=== PATIENT | male | born 1995 | race Caucasian/White ===

== ENCOUNTER 2017-05-11 12:00 | Inpatient (IN) | payer BC ==
--- NOTE | ~2017-05-11 | PN ---
Unit #: [id number] #: [id number] Patient: FARRAH SCHERER [id number] [facility] [address] [place] [address] [id number] I MR#: [id number] NAME: FARRAH SCHERER ROOM: P174 Age: 21 Sex: M Admission Date: 05/12/2017 : 1995 Attending Physician: Lexie Bourgeois M.D. Admitting Physician: Lexie Bourgeois M.D. Primary Care Physician: Primary Care Physician Katherine DAMIAN NOTES DATE OF SERVICE 05/20/2017 DISCUSSION Mr. Scherer is a 21-year-old white male who was seen today. Chart was reviewed and case was discussed with the staff. He was scheduled to be discharged yesterday. However, he apparently has not been feeling good, and his mother called stating that she does not feel safe, and the patient has been calling and telling her on the phone that he was going to go on a rampage at [facility] and kill people. He was telling the staff members that Risperdal was making him have violent thoughts even though he was switched to Risperdal from Haldol. However, discharge planning was canceled due to significant concern about his safety and safety of others, and Risperdal was switched to Zyprexa. He still remains anxious, withdrawn, and rather seclusive to himself with blunted affect, minimal interaction, poor eye contact, and some thought-blocking, and poor frustration tolerance and difficulty expressing himself and has been exhibiting some disorganized thought, speech, and behavior, and we will recommend maintaining him on his current level of precaution and his Zyprexa. We will monitor response and make further adjustments as needed. Dictated by... Vaibhav Bill/luisa TD: 05/20/2017 11:13 JOB #: [id number] JIN DAMIAN NOTES Page 1 of 1 X Lexie Bourgeois MD PROGRESS NOTE
--- NOTE | ~2017-05-11 | PN ---
Unit #: [id number] #: [id number] Patient: FARRAH SCHERER [id number] [facility] [address] [place] [address] [id number] I MR#: [id number] NAME: FARRAH SCHERER. ROOM: P174 Age: 21 Sex: M Admission Date: 05/12/2017 : 1995 Attending Physician: Lexie Bourgeois M.D. Admitting Physician: Lexie Bourgeois M.D. Primary Care Physician: Primary Care Physician Katherine DAMIAN NOTES DATE 05/15/2017 DISCUSSION Mr. Scherer is a 21-year-old, white male who was seen today and chart was reviewed and case was discussed with the staff. He has been anxious, withdrawn though has not shown any agitation, irritability and has been cooperative with treatment recommendations. He has been taking medication and tolerating them fairly well with no reported side effects. MENTAL STATUS EXAM Young white male who was casually dressed with fair personal hygiene, appears to be in no acute distress or discomfort. He was awake and alert on interaction with intact orientation. His mood was anxious with congruent affect. He denies any suicidal or homicidal ideation. His insight and judgement remains slightly impaired. TREATMENT PLAN 1. We will continue him on his current medications and treatment protocol. We will monitor his response to the medication and make further adjustments as needed. 2. We will continue to follow up. Dictated by... Vaibhav Bill/sheree TD: 05/16/2017 02:35 JOB #: [id number] Unit #: [id number] #: [id number] Patient: FARRAH SCHERER JIN PROGRESS NOTES Page 1 of 1 X Lexie Bourgeois MD PROGRESS NOTE
--- NOTE | ~2017-05-11 | PN ---
Unit #: [id number] #: [id number] Patient: FARRAH SCHERER [id number] [facility] [address] [place] [address] [id number] I MR#: [id number] NAME: FARRAH SCHERER. ROOM: P174 Age: 21 Sex: M Admission Date: 05/12/2017 : 1995 Attending Physician: Lexie Bourgeois M.D. Admitting Physician: Lexie Bourgeois M.D. Primary Care Physician: Primary Care Physician Katherine ABDI PROGRESS NOTES DATE 05/22/2017 DISCUSSION Mr. Scherer is a 21-year-old white male with mood disorder who was seen today and chart was reviewed and case was discussed with the staff. He has been rather anxious, withdrawn and seclusive to himself. Meanwhile, he has been cooperative with treatment recommendations and has been taking medications and tolerating them fairly well with no reported side effects. MENTAL STATUS EXAMINATION Young white male who was casually dressed with fair personal hygiene and appears to be in no acute distress or discomfort. He was awake and alert on interaction with intact orientation. His mood was anxious with congruent affect. He denies any suicidal or homicidal ideations. His insight and judgement remains slightly impaired. TREATMENT PLAN 1. Will continue on his current medications and treatment protocol. Will monitor his response to the medications and make further adjustments as needed. 2. Will continue to follow up. Dictated by... Vaibhav Bill/jensh TD: 05/22/2017 16:26 JOB #: [id number] Unit #: [id number] #: [id number] Patient: FARRAH SCHERER JIN PROGRESS NOTES Page 1 of 1 X Lexie Bourgeois MD PROGRESS NOTE
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
--- NOTE | ~2017-05-11 | DS ---
Unit #: [id number] #: [id number] Patient: FARRAH SCHERER [id number] [facility] [address] [place] [address] [id number] I MR#: [id number] NAME: FARRAH SCHERER. ROOM: P179 Age: 21 Sex: M Admission Date: 05/12/2017 : 1995 Discharge Date: 05/24/2017 Attending Physician: Lexie Bourgeois M.D. DISCHARGE SUMMARY IDENTIFYING DATA Mr. Scherer is a 21-year-old single white male, who is a resident of [place], [place], and was transferred to us from [facility]. DISCHARGE DIAGNOSES Psychiatric: Methamphetamine dependence, moderate; methamphetamine-induced psychosis. Medical: None. Stressors: Moderate psychosocial stressors. HISTORY OF PRESENT ILLNESS Mr. Scherer is a 21-year-old white male, who was initially assessed yesterday and was transferred to [facility] for medical clearance due to elevated vitals and the patient was discharged from the emergency room and got a talk with a bus mechanic, and returned to [facility]iam Pabon for reassessment stating that he continues to have psychotic symptoms and has been having trouble sleeping because of voices in his head and needing a safe place to sleep and that he was in a facility before and had psychiatric treatment and had bad experience with the medication because he went back to school, people were saying "my personality was different and my mood worsened and I became violent and stayed away from people." The patient reports that he came here because he lost his job and got evicted from the house that he was staying in and he started hanging out with friends who stated that they were going to help him to get back on his feet and the patient reports that the people were harassing him and trying to keep him away from teasing him sexually. They try to make him think that he was hearing voices and every time he would leave and sleep in the park, they would find him and bring him back to their apartment, have sex in front of him and the patient reports that he trusted this group of people and they were smoking methamphetamine and shooting up heroin in front of children and printing up counterfeit money $50 bills. $20 bills, and $10 bills and they would give him money and "sent me to the store with the counterfeit money." The patient reports that he worked at [employer] and people would come in and talk about him like he was not there. The patient reports that he has been smoking a lot of methamphetamine for the past 3 days and it has gotten worse and he has not been sleeping and was seen to be acutely psychotic with significant paranoia and delusional behavior, and was seen to be rather a danger to self and has a history of cutting in the past, though he denied any current suicidal ideations, however, recommendation for inpatient level of care for safety and stabilization was made and the patient was transferred to us. Unit #: [id number] #: [id number] Patient: FARRAH SCHERER PAST PSYCHIATRIC HISTORY The patient has had a history of inpatient psychiatric hospitalization at [facility] in 2012, though currently is not active in any treatment program, is not seeing a psychiatrist, and not taking any psychotropic medications. PAST MEDICAL HISTORY No acute or chronic medical illnesses. HOSPITAL COURSE The patient was admitted to the adult psychiatric unit at [facility] and was oriented to the hospital environment. Routine p.r.n. medications were initiated, and he was started on his home medications. Initially, Haldol was started due to acute psychosis; however, he was having some EPS related side effects and Haldol was then switched to Risperdal and he was complaining of having some violent thoughts from that medication and as such, it was discontinued. Zyprexa then was initiated with good tolerability and therapeutic response. The patient was denying any thoughts of wanting to hurt himself or anyone else, and as such, it was decided that he will be maintained on his current medication and will be discharged home. We will continue with treatment on an outpatient basis. DISCHARGE MEDICATION Zyprexa 10 mg at bedtime for psychosis. DISCHARGE CONDITION Stable. PROGNOSIS Fair. Dictated by... Vaibhav Bill/katrin TD: 05/24/2017 13:49 JOB #: [id number] DISCHARGE SUMMARY Page 1 of 1 X Lexie Bourgeois MD X DISCHARGE SUMMARY
--- NOTE | ~2017-05-11 | PA ---
Unit #: [id number] #: [id number] Patient: FARRAH SCHERER [id number] [facility] [address] [place] [address] [id number] MR#: [id number] NAME: FARRAH SCHERER ROOM: P174 Age: 21 Sex: M Admission Date: 05/12/2017 : 1995 Date of Assessment: 05/12/2017 Attending Physician: Lexie Bourgeois M.D. Admitting Physician: Lexie Bourgeois M.D. Primary Care Physician: Primary Care Physician No PSYCHIATRIC ASSESSMENT DATE OF SERVICE 05/12/2017. IDENTIFYING DATA Mr. Scherer is a 21-year-old, single, white male, who is a resident of [place], [place], and was self-referred to the hospital on a voluntary basis after he was transferred back to us from [facility]. CHIEF COMPLAINT "I'm having suicidal thoughts." HISTORY OF PRESENT ILLNESS Mr. Scherer is a 21-year-old white male, who was initially assessed yesterday and was transferred to [facility] for medical clearance due to elevated vitals and the patient was discharged from the emergency room and got a talk with a business support specialist, and returned to [facility] for reassessment stating that he continues to have psychotic symptoms and has been having trouble sleeping because of voices in his head and needing a safe place to sleep and that he was in a facility before and had psychiatric treatment and had bad experience with the medication because he went back to school, people were saying "my personality was different and my mood worsened and I became violent and stayed away from people." The patient reports that he came here because he lost his job and got evicted from the house that he was staying in and he started hanging out with friends who stated that they were going to help him to get back on his feet and the patient reports that the people were harassing him and trying to keep him away from teasing him sexually. They try to make him think that he was hearing voices and every time he would leave and sleep in the park, they would find him and bring him back to their apartment, have sex in front of him and the patient reports that he trusted this group of people and they were smoking methamphetamine and shooting up heroin in front of children and printing up counterfeit money $50 bills. $20 bills, and $10 bills and they would give him money and "sent me to the store with the counterfeit money." The patient reports that he worked at [employer] and people would come in and talk about him like he was not there. The patient reports that he has been smoking a lot of methamphetamine for the past 3 days and it has gotten worse and he has not been sleeping and was seen to be acutely psychotic with significant paranoia and delusional behavior, and was seen to be rather a danger to self and has a history of cutting in the past, though he denied any current suicidal ideations, however, recommendation for inpatient level of care for safety and stabilization was made and the patient was transferred Unit #: [id number] #: [id number] Patient: FARRAH SCHERER to us. SUBSTANCE ABUSE HISTORY The patient reports history of cannabis and methamphetamine abuse and currently methamphetamine has been his drug of choice as he reports that he has "lot of methamphetamine." PAST PSYCHIATRIC HISTORY The patient has had a history of inpatient psychiatric hospitalization at [facility] in 2013, though currently is not active in any treatment program, is not seeing a psychiatrist, and not taking any psychotropic medications. PAST MEDICAL HISTORY No acute or chronic medical illnesses. ALLERGIES No known medication allergies. CURRENT MEDICATIONS None. PERSONAL AND SOCIAL HISTORY A 21-year-old white male, who reports that he is single, unemployed, and has been living at home with his mother and father and has fairly decent social support system. MENTAL STATUS EXAMINATION Young white male, who was casually dressed with fair personal hygiene, appears to be in no acute distress or discomfort. He was awake and alert on interaction with intact orientation to time, place, and person. His mood was anxious and depressed with a congruent affect. His speech was slow and restricted in content. His thought processes were disorganized with some looseness of associations, flight of ideas, paranoid ideations and delusional behavior. He denies any suicidal or homicidal ideations. His insight and judgment remain significantly impaired. DIAGNOSTIC IMPRESSION Psychiatric: Methamphetamine dependence, moderate; methamphetamine-induced psychosis. Medical: None. Stressors: Moderate psychosocial stressors. TREATMENT PLAN 1. The patient has presented with a history of substance abuse and mood disorder, and has been decompensating and will need inpatient hospitalization for detoxification, safety, and stabilization. We will start him back on his home medications. We will adjust the medications and monitor response. 2. Supportive therapy was provided to the patient. 3. Safe, structured, and nourishing environment will be provided. ESTIMATED LENGTH OF STAY 4 to 5 days. ABILITY TO HELP SELF Unit #: [id number] #: [id number] Patient: FARRAH SCHERER Limited. WILLINGNESS TO HELP SELF The patient appears to be willing to help self. STRENGTHS 1. Communicative. 2. Cooperative. PROBLEMS 1. Chronic dysphoric symptoms. 2. Chronic chemical dependency. 3. Poor social support system. DISCHARGE CRITERIA This will be contingent upon the patient's ability to go through detox without having any significant withdrawal symptoms as well as his ability to stay safe to himself and others, particularly after discharge from the hospital. Dictated by... Vaibhav Bill/katrin TD: 05/13/2017 06:45 JOB #: [id number] PSYCHIATRIC ASSESSMENT Page 1 of 1 X Lexie Bourgeois MD X PSYCHIATRIC ASSESSMENT
--- NOTE | ~2017-05-11 | PN ---
Unit #: [id number] #: [id number] Patient: FARRAH SCHERER [id number] [facility] [address] [place] [address] [id number] MR#: [id number] NAME: FARRAH SCHERER. ROOM: P174 Age: 21 Sex: M Admission Date: 05/12/2017 : 1995 Attending Physician: Lexie Bourgeois M.D. Admitting Physician: Lexie Bourgeois M.D. Primary Care Physician: Primary Care Physician Katherine ABDI PROGRESS NOTES DATE May 17, 2017 DISCUSSION Mr. Scherer is a 21-year-old white male, who was seen today and chart was reviewed and the case was discussed with the staff. He appears to be doing somewhat better and was started on Risperdal yesterday and has not shown any intolerability and he remains anxious, withdrawn, unkept, and disheveled, and seclusive to himself. MENTAL STATUS EXAMINATION Young white male, who was casually dressed with marginal personal hygiene and appears to be in no acute distress or discomfort. He was awake and alert with impaired attention and concentration. His mood is anxious with a congruent affect. He denies any suicidal or homicidal ideations. His insight and judgment remain significantly impaired. TREATMENT PLAN 1. We will continue him on his current medications and treatment protocol, and will monitor his response to the medications, and make further adjustments as needed. 2. We will continue to followup. Dictated by... Vaibhav Bill/ct TD: 05/17/2017 10:21 JOB #: [id number] Unit #: [id number] #: [id number] Patient: FARRAH SCHERER PROGRESS NOTES Page 1 of 1 X Lexie Bourgeois MD PROGRESS NOTE
--- NOTE | ~2017-05-11 | PN ---
Unit #: [id number] #: [id number] Patient: FARRAH SCHERER [id number] [facility] [address] [place] [address] [id number] MR#: [id number] NAME: FARRAH SCHERER. ROOM: P174 Age: 21 Sex: M Admission Date: 05/12/2017 : 1995 Attending Physician: Lexie Bourgeois M.D. Admitting Physician: Lexie Bourgeois M.D. Primary Care Physician: Primary Care Physician Katherine ABDI PROGRESS NOTES DATE 05/16/2017 DISCUSSION Mr. Scherer is a 21-year-old, white male who was seen today and chart was reviewed and case was discussed with the staff. He has been anxious, withdrawn, unkempt, disheveled in some distress and discomfort though has started coming out for meals. Meanwhile, he has been taking medications and tolerating them fairly well with no reported side effects. MENTAL STATUS EXAM Young white male who was casually dressed with fair personal hygiene, appears to be in no acute distress or discomfort. He was awake and alert on interaction with intact orientation. His mood was anxious with congruent affect. He denies any suicidal or homicidal ideation. His insight and judgement remains slightly impaired. TREATMENT PLAN 1. We will continue him on his current treatment protocol. We will monitor his response to the medication and make further adjustments as needed. 2. We will continue to follow up. Dictated by... Vaibhav Bill/sheree TD: 05/16/2017 22:19 JOB #: [id number] Unit #: [id number] #: [id number] Patient: FARRAH SCHERER JIN PROGRESS NOTES Page 1 of 1 X Lexie Bourgeois MD PROGRESS NOTE
--- NOTE | ~2017-05-11 | PN ---
Unit #: [id number] #: [id number] Patient: FARRAH SCHERER [id number] [facility] [address] [place] [address] [id number] MR#: [id number] NAME: FARRAH SCHERER. ROOM: P174 Age: 21 Sex: M Admission Date: 05/12/2017 : 1995 Attending Physician: Lexie Bourgeois M.D. Admitting Physician: Lexie Bourgeois M.D. Primary Care Physician: Primary Care Physician Katherine DAMIAN NOTES DATE OF SERVICE 05/20/2017 DISCUSSION Mr. Scherer is a 21-year-old white male who was seen today. Chart was reviewed and case was discussed with the staff. He has been doing fairly well and reports the Zyprexa has been helping him better as Risperdal detox is making him have violent thoughts, but he is much calmer on Zyprexa and denies any thoughts of wanting to hurt anyone. He has been taking the medications and tolerating them fairly well with no reported side effects. MENTAL STATUS EXAMINATION Young white male who is casually dressed with fair personal hygiene, appears to be in no acute distress or discomfort. He was awake and alert with intact orientation. His mood is anxious with congruent affect. He denies any suicidal or homicidal ideations. His insight and judgment remain slightly impaired. TREATMENT PLAN 1. We will continue him on his current medications and treatment protocol. We will monitor his response to the medications and make further adjustments as needed. 2. We will continue to follow up. Dictated by... Vaibhav Bill/luisa TD: 05/21/2017 11:06 JOB #: [id number] Unit #: [id number] #: [id number] Patient: FARRAH SCHERER JIN PROGRESS NOTES Page 1 of 1 X Lexie Bourgeois MD PROGRESS NOTE
--- NOTE | ~2017-05-11 | A ---
[facility] Nutrition Therapy DATE: 05/14/17 Patient: FARRAH SCHERER Physician: FIDEL Address: NO PERMANENT ADDRESS Room/Bed: [address], Zip: [place] [address] Admit Date: 05/12/17 Date of : 95 Height: 5 7 Weight: [phone] NUTRITIONAL ASSESSMENT: REASON: UNINTENTIONAL WEIGHT LOSS PATIENT ADMITTED FOR DEPRESSION AND SI PMH: NONE Anthropometrics: HT: 67", WT: 128#, BMI: 20, %IBW: 86 Labs: 05/13/17- NUTRITIONAL LABS WNL Meds: LUCAS PAN Assessment: PATIENT IS A 21 Y/O MALE ADMITTED FOR SI AND DEPRESSION. PATIENT IS CURRENTLY UNEMPLOYED, LIVES IN AN APARTMENT, SMOKES 1 PPD, HAS DAILY METH USE, AND FREQUENT MARIJUANA USE. PATIENT HAS A HX OF INPATIENT PSYCH THERAPY AND WAS NOT TAKING ANY MEDICATIONS. PER NEEDS ASSESSMENT PATIENT STATED A POOR APPETITE WITH A 10# WEIGHT LOSS X LAST SEVERAL MONTHS AND HE HAD NOT BEEN SLEEPING. NURSING REPORTS FAIR PO INTAKES. PATIENT'S BMI IS WITHIN A HEALTHY RANGE AND HE IS 86% OF HIS IBW. THERE ARE NO SKIN OR GI ISSUES NOTED ATT. CURRENT PSYCH MEDS MAY CAUSE WEIGHT AND APPETITE FLUCTUATIONS. PATIENT IS ON A REGULAR DIET. Dx: UNINTENTIONAL WEIGHT LOSS R/T DEPRESSION, DRUG USE AEB SELF-REPORTED WEIGHT LOSS AND DECREASED APPETITE, NUTRITIONAL RISK POINT Intervention: REGULAR DIET, MEDS PER MD, PSYCH Monitoring, Evaluation and Goals: 1. ADEQUATE PO INTAKES >50% OF MEALS 2. PREVENT, CORRECT MICRO/MACRO NUTRIENT DEFICIENCIES 3. WEIGHT; MAINTAIN CURRENT WEIGHT, PREVENT FURTHER WEIGHT LOSS MONITOR; WEIGHTS, LABS, PO/FLUID INTAKES Recommendations: 1. CONTINUE REGULAR DIET TOLERATED. OFFER SNACKS BETWEEN MEALS. IF PATIENT HAS C/O HUNGER PLEASE SEND ORDER FOR LARGE PORTION ENTREES AND RD WILL APPROVE 2. ENCOURAGE ADEQUATE PO AND FLUID INTAKES 3. OBTAIN WEIGHTS ROUTINELY (EVERY 3-4 DAYS) 4. IF PO INTAKES FALL BELOW 50% OF MEALS PLEASE ORDER ENSURE BID TO PROMOTE ADEQUATE KCAL [facility] Nutrition Therapy DATE: 05/14/17 Patient: FARRAH SCHERER Physician: FIDEL Address: NO PERMANENT ADDRESS Room/Bed: [address], Zip: [place] [address] Admit Date: 05/12/17 Date of : 95 Height: 5 7 Weight: [address] PROTE[address] IN[address] TO F/U PER PROTOCOL AND PRN R/T PATIENT MILDLY COMPROMISED Respectfully, KELSEY LEMUS, RD, LD Food and Nutritional Services [facility] [place] [facility] cc: client file
--- NOTE | ~2017-05-11 | DS ---
Unit #: [id number] #: [id number] Patient: FARRAH SCHERER [id number] [facility] [address] [place] [address] [id number] I MR#: [id number] NAME: FARRAH SCHERER ROOM: P174 Age: 21 Sex: M Admission Date: 05/12/2017 : 1995 Discharge Date: 05/19/2017 Attending Physician: Lexie Bourgeois M.D. Primary Care Physician: Primary Care Physician No DISCHARGE SUMMARY REASON FOR ADMISSION Mr. Scherer is a 21-year-old single white male who is a resident of [place], [place] and was self-referred to the hospital on voluntary basis and [facility] with a chief complaint of "I'm having suicidal thoughts." HISTORY OF PRESENT ILLNESS Please see initial psychiatric evaluation. PAST PSYCHIATRIC HISTORY Please see initial psychiatric evaluation. PAST MEDICAL HISTORY Please see initial psychiatric evaluation. HOSPITAL COURSE The patient was [facility] and was oriented to the hospital. Routine p.r.n. medications were initiated and he was started back on his home medications and was seen to be exhibiting some acute psychosis as part of that, Haldol was initially started. However, he was having some EPS related side effects and I gave him some Cogentin but he was still having those side effects and as such Haldol was then discontinued and Risperdal was initiated and that helped clear his psychosis which appeared to be part of his methamphetamine dependence. He does not seem to be a danger to self or anyone else and as such it was decided that he will be discharged and will continue treatment on outpatient basis. DISCHARGE DIAGNOSES PSYCHIATRIC: Methamphetamine dependence, moderate with amphetamine induced psychosis. MEDICAL: None. STRESSORS: Mild psychosocial stressors. DISCHARGE MEDICATIONS Risperdal 0.5 mg b.i.d. for psychosis. CONDITION AT DISCHARGE Stable. Unit #: [id number] #: [id number] Patient: FARRAH SCHERER PROGNOSIS Fair. Dictated by... Lexie Bourgeois M.D. IAA/jensh TD: 05/19/2017 19:58 JOB #: [id number] DISCHARGE SUMMARY Page 1 of 1 X Lexie Bourgeois MD DISCHARGE SUMMARY
--- NOTE | ~2017-05-11 | PN ---
Unit #: [id number] #: [id number] Patient: FARRAH SCHERER [id number] [facility] [address] [place] [address] [id number] I MR#: [id number] NAME: FARRAH SCHERER. ROOM: 74 Age: 21 Sex: M Admission Date: 05/12/2017 : 1995 Attending Physician: Lexie Bourgeois M.D. Admitting Physician: Lexie Bourgeois M.D. Primary Care Physician: Primary Care Physician Katherine DAMIAN NOTES DATE May 18, 2017 DISCUSSION Mr. Scherer is a 21-year-old white male, who was seen today and chart was reviewed and the case was discussed with the staff. He has been anxious, withdrawn, but has not shown any agitation, irritability, or behavioral problems and has been cooperative with the treatment recommendations and has had persistent anxiety. He has been taking the medications and tolerating them fairly well. MENTAL STATUS EXAMINATION Young white male, who was casually dressed with fair personal hygiene and appears to be in no acute distress or discomfort. He was awake and alert on interaction with intact orientation. His mood is anxious with a congruent affect. He denies any suicidal or homicidal ideations, and also denies any auditory or visual hallucinations. His insight and judgment remain slightly impaired. TREATMENT PLAN 1. We will continue him on his current medications and treatment protocol, and will monitor his response to the medications, and make further adjustments as needed. 2. We will continue to followup. Dictated by... Vaibhav Bill/ct TD: 05/18/2017 12:27 JOB #: [id number] Unit #: [id number] #: [id number] Patient: FARRAH SCHERER JIN PROGRESS NOTES Page 1 of 1 X Lexie Bourgeois MD PROGRESS NOTE
--- NOTE | ~2017-05-11 | PN ---
Unit #: [id number] #: [id number] Patient: FARRAH SCHERER [id number] [facility] [address] [place] [address] [id number] I MR#: [id number] NAME: FARRAH SCHERER. ROOM: P179 Age: 21 Sex: M Admission Date: 05/12/2017 : 1995 Attending Physician: Lexie Bourgeois M.D. Admitting Physician: Lexie Bourgeois M.D. Primary Care Physician: Primary Care Physician Katherine DAMIAN NOTES DATE May 23, 2017 DISCUSSION Mr. Scherer is a 21-year-old white male, with mood disorder, who was seen today and chart was reviewed and the case was discussed with the staff. He has been calm and cooperative and seclusive to himself, and has not shown any agitation or aggression. Meanwhile, he has been taking the medications and tolerating them fairly well with no reported side effects. MENTAL STATUS EXAMINATION Young white male, who was casually dressed with fair personal hygiene and appears to be in no acute distress or discomfort. He was awake and alert on interaction with intact orientation. His mood is anxious with a congruent affect. He denies any suicidal or homicidal ideations. His insight and judgment remain slightly impaired. TREATMENT PLAN 1. We will continue him on his current medications and treatment protocol, and will monitor his response to the medications, and make further adjustments as needed. 2. We will continue to followup. Dictated by... Vaibhav Bill/ct TD: 05/24/2017 06:44 JOB #: [id number] Unit #: [id number] #: [id number] Patient: FARRAH SCHERER JIN PROGRESS NOTES Page 1 of 1 X Lexie Bourgeois MD PROGRESS NOTE
--- NOTE | ~2017-05-11 | PN ---
Unit #: [id number] #: [id number] Patient: FARRAH SCHERER [id number] [facility] [address] [place] [address] [id number] I MR#: [id number] NAME: FARRAH SCHERER ROOM: P174 Age: 21 Sex: M Admission Date: 05/12/2017 : 1995 Attending Physician: Lexie Bourgeois M.D. Admitting Physician: Vaibhav Bill NOTES DATE OF SERVICE: 05/13/2017 SUBJECTIVE Mr. Scherer is a 21-year-old white male who was seen today and chart was reviewed and case was discussed with the staff. He was seen to be anxious, withdrawn, restless and in some distress and discomfort. Meanwhile, he has been taking medications and tolerating them fairly well with no reported side effects. MENTAL STATUS EXAMINATION Young white male, who is casually dressed with fair personal hygiene, appears to be in slight distress and discomfort. He was alert with impaired attention and concentration. His mood was anxious with a congruent affect. He denies any suicidal or homicidal ideation. His insight and judgment remain slightly impaired. TREATMENT PLAN 1. We will continue on his current medications and treatment protocol. We will monitor his response to medications and make further adjustments as needed. 2. We will continue to follow up. Dictated by... Vaibhav Bill/katrin TD: 05/14/2017 00:53 JOB #: [id number] JIN PROGRESS NOTES Page 1 of 1 X Lexie Bourgeois MD PROGRESS NOTE
--- NOTE | ~2017-05-11 | PN ---
Unit #: [id number] #: [id number] Patient: FARRAH SCHERER [id number] [facility] [address] [place] [address] [id number] I MR#: [id number] NAME: FARRAH SCHERER. ROOM: P174 Age: 21 Sex: M Admission Date: 05/12/2017 : 1995 Attending Physician: Lexie Bourgeois M.D. Admitting Physician: Lexie Bourgeois M.D. Primary Care Physician: Primary Care Physician Katherine ABDI PROGRESS NOTES DATE 05/14/2017 DISCUSSION Mr. Scherer is a 21-year-old white male who was seen today and chart was reviewed and case was discussed with the staff. He has been anxious, withdrawn and apparently had some EPS ____ Haldol yesterday and Cogentin was given with full evaluation of side effects. Meanwhile, though still has been anxious, withdrawn and persistent psychosis though has not shown any agitation or aggression. MENTAL STATUS EXAMINATION Young white male who was casually dressed with fair personal hygiene and appears to be in no acute distress or discomfort. He was awake and alert on interaction with intact orientation. His mood was anxious with congruent affect. He denies any suicidal or homicidal ideation. His thought processes were disorganized with some looseness of association and paranoid ideations. His insight and judgement remains significantly impaired. TREATMENT PLAN 1. Will continue on his current medications and treatment protocol. Will monitor his response to the medications and make further adjustments as needed. 2. Will continue to follow up. Dictated by... Vaibhav Bill/jannie TD: 05/14/2017 16:06 JOB #: [id number] Unit #: [id number] #: [id number] Patient: FARRAH SCHERER JIN PROGRESS NOTES Page 1 of 1 X Lexie Bourgeois MD PROGRESS NOTE
[2017-05-13 09:39] LABS: BASOPHIL% 0.7 % (0-2.5); EOSINOPHIL# 0.2 X10e3 (0-0.7); EOSINOPHIL% 3.6 % (0.0-7.0); HEMATOCRIT 44.1 % (38.0-50.0); HEMOGLOBIN 14.9 gm/dL (13.0-16.0); LYMPHOCYTE# 1.2 X10e3 (1.0-3.5); LYMPHOCYTE% 22.5 % (17.0-45.0); MEAN CELL VOLUME 89.1 FL (83-96); MEAN CORPUSCULAR HEMOGLOBIN 30.1 PG (28-34); MEAN CORPUSCULAR HGB CONC 33.8 g/dL (30-36); MEAN PLATELET VOLUME 9.8 FL (6.5-11.5); MONOCYTE# 0.6 X10e3 (0-1.0); MONOCYTE% 10.8 % (3.0-12.0); NEUTROPHIL# 3.4 X10e3 (1.5-7.1); NEUTROPHIL% 62.4 % (40-75); PLATELET COUNT 138 X10e3 (140-420); RED BLOOD COUNT 4.95 X10e (3.90-5.60); RED CELL DISTRIBUTION WIDTH 13.3 % (11.0-15.5); WHITE BLOOD COUNT 5.4 X10e3 (4.0-10.5)
[2017-05-13 09:58] LABS: DIFF IND NO
[2017-05-13 10:15] LABS: ALBUMIN SERUM 4.1 g/dL (3.5-5.0); BILIRUBIN,TOTAL 1.1 mg/dL (0.2-2.0); BUN/CREATININE RATIO 12.22; CALCIUM SERUM 9.4 mg/dL (8.4-10.2); CREATININE SERUM 0.9 mg/dL (0.6-1.4); GLOM FILT RATE Estimated 121.7 mL/min (>60); POTASSIUM 4.5 mmol/L (3.5-5.1); PROTEIN TOTAL SERUM 6.3 g/dL (6.0-8.3)
[2017-05-13 12:32] LABS: URINE APPEARANCE CLEAR; URINE BILIRUBIN NEG (NEG); URINE BLOOD NEG (NEG); URINE COLOR DK YELLOW; URINE GLUCOSE NEG (NEG); URINE KETONE NEG (NEG); URINE LEUKOCYTE ESTERASE NEG (NEG); URINE NITRATE NEG (NEG); URINE PROTEIN NEG (NEG); URINE SPECIFIC GRAVITY 1.023 (1.003-1.035)
[2017-05-13 12:46] LABS: AMPHETAMINE POS (NEG); BARBITURATES NEG (NEG); BENZODIAZEPINES NEG (NEG); COCAINE NEG (NEG); MARIJUANA POS (NEG); OPIATES NEG (NEG); TRICYCLIC ANTIDEPRESSANTS NEG (NEG); U METHADONE NEG (NEG)
== END 2017-05-24 10:24 | disposition home or self-care (01) | DRG 897 ==
LOC: UNDOADMIN 15:46 → P1E 15:46
PROVIDERS: Psychiatry & Neurology Psychiatry
PROC: HZ2ZZZZ Detoxification Services for Substance Abuse Treatment (ICD-10-PCS; principal; 2017-05-12)
DX: F15.259 Other stimulant dependence with stimulant-induced psychotic disorder, unspecified (principal); F17.210 Nicotine dependence, cigarettes, uncomplicated
CPT/HCPCS: 80053; 80307; 81003; 85025; J0515

== ENCOUNTER 2017-06-01 17:24 | Inpatient (IN) | payer BC, MEDICAID ==
[~2017-06-01] VITALS: Ht 170.2 cm; Wt 53.5 kg
--- NOTE | ~2017-06-01 | PN ---
Unit #: [id number] #: [id number] Patient: FARRAH SCHERER [id number] [facility] [address] [place] [address] [id number] I MR#: [id number] NAME: FARRAH SCHERER [facility] Age: 21 Sex: M Admission Date: 06/01/2017 : 1995 Attending Physician: Lexie Bourgeois M.D. Admitting Physician: Lexie Bourgeois M.D. Primary Care Physician: Primary Care Physician Katherine ABDI PROGRESS NOTES DATE June 10, 2017 DISCUSSION Mr. Scherer is a 21-year-old white male, who was seen today and chart was reviewed and the case was discussed with the staff. He has been anxious, withdrawn, and seclusive to himself. Meanwhile, he has been cooperative with the treatment recommendations and he has been taking the medications and tolerating them fairly well with no reported side effects. MENTAL STATUS EXAMINATION Young white male, who was casually dressed with fair personal hygiene and appears to be in no acute distress or discomfort. He was awake and alert on interaction with intact orientation. His mood is anxious with a congruent affect. Speech is slow and goal-directed. He denies any suicidal ideations, and also denies any auditory or visual hallucinations. His insight and judgment remain slightly impaired. TREATMENT PLAN 1. We will continue him on his current medications and treatment protocol, and will monitor his response to the medications, and make further adjustments as needed. 2. We will continue to followup. Dictated by... Vaibhav Bill/ct TD: 06/11/2017 07:27 JOB #: [id number] Unit #: [id number] #: [id number] Patient: FARRAH SCHERER JIN PROGRESS NOTES Page 1 of 1 X Lexie Bourgeois MD PROGRESS NOTE
--- NOTE | ~2017-06-01 | PN ---
Unit #: [id number] #: [id number] Patient: FARRAH SCHERER [id number] [facility] [address] [place] [address] [id number] I MR#: [id number] NAME: FARRAH SCHERER ROOM: [facility] Age: 21 Sex: M Admission Date: 06/01/2017 : 1995 Attending Physician: Lexie Bourgeois M.D. Admitting Physician: Lexie Bourgeois M.D. Primary Care Physician: Primary Care Physician Katherine DAMIAN NOTES DATE 06/05/2017 DISCUSSION Mr. Scherer is a 21-year-old white male with mood disorder and psychosis who was seen today and chart was reviewed and case was discussed with the staff. He was seen to be anxious, withdrawn and seclusive to himself with bizarre behavior and blunted affect, minimal interaction, paranoid ideations and thought blocking. Meanwhile, he has been taking medications and tolerating them fairly well with no reported side effects. MENTAL STATUS EXAMINATION Young white male who was casually dressed with fair personal hygiene and appears to be in no acute distress or discomfort. He was awake and alert on interaction with intact orientation. His mood was anxious and depressed with blunted affect. His speech is slow and restricted in content. His thought processes were disorganized with some looseness of associations and paranoid ideations. His insight and judgement remains significantly impaired. TREATMENT PLAN 1. Will continue on his current medications and treatment protocol. Will monitor his response to the medications and make further adjustments as needed. 2. Will continue to follow up. Dictated by... Vaibhav Bill/jannie TD: 06/05/2017 20:51 JOB #: [id number] Unit #: [id number] #: [id number] Patient: FARRAH SCHERER JIN DAMIAN NOTES Page 1 of 1 X Lexie Bourgeois MD PROGRESS NOTE
--- NOTE | ~2017-06-01 | FU ---
[facility] Nutrition Therapy DATE: 06/11/17 Patient: FARRAH SCHERER Physician: FIDEL Address: NO PERMANENT ADDRESS Room/Bed: [address], Zip: [place] [address] Admit Date: 06/01/17 Date of : 95 Height: 5 7 Weight: 117 53.809844 NUTRITION MONITORING/FOLLOW-UP: Reason: Nutrition follow-up Admitting dx: 21 y/o male admitted for psychosis Anthropometrics: Ht: 67", admission wt: 118 lbs, BMI: 18.5 (underweight), 80% IBW *No updated weight available Labs: No updated labs available Meds: Reviewed Assessment: Chart reviewed, events noted. Patient on regular diet receiving large portion entree at lunch and dinner to help promote weight gain. He has been compliant with medications and therapy and has had consistently good appetite since admission. No further nutrition interventions necessary at this time, see nutrition dx and goals below. Dx: Inadequate nutrient intake r/t clinical condition AEB low BMI, 10 lb weight loss, decreased appetite - RESOLVED New nutrition dx: Underweight r/t psychosis, drug abuse AEB BMI 18.5, 80% IBW. Intervention: None at this time Monitoring, Evaluation and Goals: 1. PO intake > 50% of meals - MET 2. Prevent/correct micro/macro nutrient deficiencies - UNMEASURED (no new labs, pt not on any vitamins) 3. Gradual weight gain towards a healthy BMI range - UNMEASURED (no new weight since admission) Monitor: Per consult Recommendations: Continue regular diet with large portion entree at lunch and dinner. If oral intake declines add Ensure BID. Please consult dietitian with any further nutritional needs. Status: Mild nutrition risk [facility] Nutrition Therapy DATE: 06/11/17 Patient: FARRAH SCHERER Physician: FIDEL Address: NO PERMANENT ADDRESS Room/Bed: [address], Zip: [place] [address] Admit Date: 06/01/17 Date of : 95 Height: 5 7 Weight: [phone] Respectfully, Gemma Dunbar RD, KEN Food and Nutritional Services [facility] cc: client file
--- NOTE | ~2017-06-01 | A ---
[facility] Nutrition Therapy DATE: 06/02/17 Patient: FARRAH SCHERER Physician: HENRRYF Address: NO PERMANENT ADDRESS Room/Bed: [address], Zip: [place] [address] Admit Date: 06/01/17 Date of : 95 Height: 5 7 Weight: 117 53.689204 NUTRITIONAL ASSESSMENT: REASON: LOW BMI (18.5) PATIENT ADMITTED FOR PSYCHOSIS PMH: NONE Anthropometrics: HT: 67", WT: 118#, BMI: 18.5, %IBW: 80 Labs: NO NEW LABS Meds: RISPERDAL Assessment: PATIENT IS A 21 Y/O MALE ADMITTED FOR PSYCHOSIS. PATIENT IS CURRENTLY UNEMPLOYED, HOMELESS, SMOKES 1 PPD, HIS TOX SCREEN WAS POSITIVE FOR MARIJUANA, AND HE HAS A RECENT HISTORY OF DAILY METH USE. HE ALSO HAS A HX OF INPATIENT PSYCH HOSPITALIZATIONS AND IT IS UNKNOWN IF PATIENT HAD BEEN COMPLIANT WITH HIS MEDICATIONS. PATIENT'S MOST RECENT D/C FROM THIS FACILITY WAS 05/24/[address] ASSESSED 05/14/17- NOTE REVIEWED. UPON ADMIT PATIENT STATED A POOR APPETITE WITH NO RECENT WEIGHT CHANGES, AND HE HAS NOT BEEN SLEEPING. WEIGHT HX PER MEDITECH INDICATES A 10# WEIGHT LOSS SINCE LAST ADMIT. WILL REQUEST A RE-WEIGH FROM NURSING. CURRENT PO INTAKES ARE UNKNOWN, HOWEVER PATIENT HAD CONSISTENTLY GOOD PO INTAKES LAST ADMIT. PATIENT IS NOTED TO HAVE MULTIPLE SUPERFICIAL CUTS TO CHEST, BUE, AND BLE WHICH ARE SELF-INFLICTED. RISPERDAL MAY CAUSE AN INCREASE IN WEIGHT AND APPETITE. PATIENT IS ON A REGULAR DIET. Dx: INADEQUATE NUTRIENT INTAKE R/T CURRENT CONDITION AEB LOW BMI, 10# WEIGHT LOSS, DECREASED APPETITE Intervention: REGULAR DIET, MEDS PER MD, PSYCH Monitoring, Evaluation and Goals: 1. ADEQUATE PO INTAKES >50% OF MEALS 2. PREVENT, CORRECT MICRO/MACRO NUTRIENT DEFICIENCIES 3. WEIGHT; PROMOTE A STEADY WEIGHT GAIN TOWARDS A HEALTHY BMI OF 19-25 AND PREVENT FURTHER WEIGHT LOSS MONITOR: WEIGHTS, LABS, PO/FLUID INTAKES Recommendations: 1. CONTINUE REGULAR DIET TOLERATED. OFFER SNACKS BETWEEN MEALS. WILL INCREASE ENTREES [facility] Nutrition Therapy DATE: 06/02/17 Patient: FARRAH SCHERER Physician: HENRRYF Address: NO PERMANENT ADDRESS Room/Bed: [address], Zip: [place] [address] Admit Date: 06/01/17 Date of : 95 Height: 5 7 Weight: 117 53.189486 TO LARGE PORTIONS D/T NEED FOR INCREASED CALORIC INTAKE 2. ENCOURAGE ADEQUATE PO AND FLUID INTAKES 3. OBTAIN A RE-WEIGHT AND CONTINUE TO MONITOR WEIGHTS EVERY 3-4 DAYS 4. IF PO INTAKES ARE BELOW 50-75% OF MEALS PLEASE ORDER ENSURE BID TO PROMOTE ADEQUATE KCAL AND PROTEIN INTAKES RD TO F/U PER PROTOCOL AND PRN R/T PATIENT MILDLY COMPROMISED Respectfully, KELSEY LEMUS, RD, LD Food and Nutritional Services [facility] cc: client file
--- NOTE | ~2017-06-01 | PA ---
Unit #: [id number] #: [id number] Patient: FARRAH SCHERER [id number] [facility] [address] [place] [address] [id number] I MR#: [id number] NAME: FARRAH SCHEERR ROOM: P110 Age: 21 Sex: M Admission Date: 06/01/2017 : 1995 Date of Assessment: 06/02/2017 Attending Physician: Lexie Bourgeois M.D. Admitting Physician: Lexie Bourgeois M.D. Primary Care Physician: Primary Care Physician No PSYCHIATRIC ASSESSMENT DATE OF SERVICE 06/02/2017. IDENTIFYING DATA Mr. Scherre is a 21-year-old single white male, who is a resident of [place], [place], and was recently discharged from care; however, the patient was transferred back to us from [facility] on a mental inquest warrant taken out by his father. CHIEF COMPLAINT "I cut myself yesterday." HISTORY OF PRESENT ILLNESS Mr. Scherer is a 21-year-old white male, who was taken to [facility] on a mental inquest warrant taken out by his father and the patient believes that he is a blood sorcerer and that he communes with [place] [employer] and admits that he does this, but also stated that he cut himself yesterday because he was depressed about not having a job and believes that his roommates are after him and was recently found sleeping on a bench at [facility] and [facility] report indicated that he is on MIW taken out on him by his father and he recently had a stay at [facility] and was discharged a week ago and was found with a razor blade and admitted to use a razor to cut himself and admits to a blood sorcery and 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 He was seen to be acutely psychotic with bizarre behavior , and danger to himself and others, and as such, recommendation for inpatient level of care for safety and stabilization was made and the patient was transferred to us. SUBSTANCE ABUSE HISTORY The patient has history of alcohol, cannabis, and methamphetamine abuse, but denies any current ongoing substance abuse, stating that he has not used any drugs in the last at least couple of weeks. PAST PSYCHIATRIC HISTORY The patient has had history of inpatient psychiatric hospitalization at [facility] and review of the medical records indicate that he has been on Zyprexa; however, he has history of poor compliance with medications on outpatient treatment and as such, has not been able to show a therapeutic response to medications. Unit #: [id number] #: [id number] Patient: FARRAH SCHERER PAST MEDICAL HISTORY The patient's medical history is insignificant. ALLERGIES No known medication allergies. PERSONAL AND SOCIAL HISTORY A 21-year-old white male, who reports that he is single, unemployed, and essentially homeless and has poor social support system. MENTAL STATUS EXAMINATION Young white male who was casually dressed with fair personal hygiene, appears to be in no acute distress or discomfort. He was awake and alert on interaction with intact orientation to time, place, and person. His mood was anxious and depressed with a congruent affect. His speech was slow and restricted in content. His thought processes were disorganized with some looseness of associations and flight of ideas and paranoid ideations and delusional behavior. His insight and judgment remain significantly impaired. DIAGNOSTIC IMPRESSION Psychiatric: Chronic paranoid schizophrenia. Medical: None. Stressors: Moderate psychosocial stressors. TREATMENT PLAN 1. The patient has presented with history of chronic mental illness and has been decompensating and will need inpatient hospitalization for safety and stabilization. We will start him back on his home medications. We will adjust the medications and monitor response. 2. Supportive therapy was provided to the patient. 3. Safe, structured, and nourishing environment will be provided. ESTIMATED LENGTH OF STAY 5 to 7 days. ABILITY TO HELP SELF Limited. WILLINGNESS TO HELP SELF The patient appears to be willing to help self. STRENGTHS 1. Communicative. 2. Cooperative. PROBLEMS 1. Chronic dysphoric symptoms. 2. Poor social support system. DISCHARGE CRITERIA This will be contingent upon the patient's ability to show resolution of his depression and anxiety and psychosis and his ability to stay safe to himself, particularly after discharge from the hospital. Dictated by... Unit #: [id number] #: [id number] Patient: SCHERERFARRAH M.D. IAA/juliennel TD: 06/03/2017 01:27 JOB #: [id number] PSYCHIATRIC ASSESSMENT Page 1 of 1 X Lexie Bourgeois MD PSYCHIATRIC ASSESSMENT
--- NOTE | ~2017-06-01 | PN ---
Unit #: [id number] #: [id number] Patient: FARRAH SCHERER [id number] [facility] [address] [place] [address] [id number] I MR#: [id number] NAME: FARRAH SCHERER ROOM: [facility] Age: 21 Sex: M Admission Date: 06/01/2017 : 1995 Attending Physician: Lexie Bourgeois M.D. Admitting Physician: Lexie Bourgeois M.D. Primary Care Physician: Primary Care Physician Katherine DAMIAN NOTES DATE 06/07/2017 DISCUSSION Mr. Scherer is a 21-year-old, white male who was seen today and chart was reviewed and case was discussed with the staff. He has been anxious, withdrawn and rather seclusive to himself. Meanwhile, he has been cooperative with the treatment recommendations. He has been taking the medication and tolerating them fairly well with no reported side effects. MENTAL STATUS EXAM Young white male who was casually dressed with fair personal hygiene, appears to be in no acute distress or discomfort. He was awake and alert on interaction with intact orientation. His mood was anxious with congruent affect. His speech was . He denies any suicidal or homicidal ideation. Also, denies any auditory or visual hallucinations. His insight and judgement remains slightly impaired. TREATMENT PLAN 1. We will continue him on his current medications and treatment protocol. We will monitor his response to the medication and make further adjustments as needed. 2. We will continue to follow up. Dictated by... Vaibhav Bill/sheree TD: 06/08/2017 04:39 JOB #: [id number] Unit #: [id number] #: [id number] Patient: FARRAH SCHERER JIN PROGRESS NOTES Page 1 of 1 X Lexie Bourgeois MD PROGRESS NOTE
--- NOTE | ~2017-06-01 | DS ---
Unit #: [id number] #: [id number] Patient: FARRAH SCHERER [id number] [facility] [place] [address] [id number] I MR#: [id number] NAME: FARRAH SCHERER. ROOM: P110 Age: 21 Sex: M Admission Date: 06/01/2017 : 1995 Discharge Date: Attending Physician: Lexie Bourgeois M.D. Primary Care Physician: Primary Care Physician No DISCHARGE SUMMARY IDENTIFYING DATA Mr. Scherer is a 21-year-old single white male, who is known to us from previous encounter, was recently discharged from my care and was transferred back to us from [facility] on a mental inquest warrant taken out by his father. DISCHARGE DIAGNOSES Psychiatric: Chronic paranoid schizophrenia. Medical: None. Stressors: Moderate psychosocial stressors. HISTORY OF PRESENT ILLNESS Please see initial psychiatric evaluation for details. PAST PSYCHIATRIC HISTORY Please see initial psychiatric evaluation for details. PAST MEDICAL HISTORY Please see initial psychiatric evaluation for details. HOSPITAL COURSE The patient was admitted to the adult psychiatric unit at [facility] [place] and was oriented to the hospital environment. Routine p.r.n. medications were initiated, and he was started back on his home medications and medications were adjusted and given his history of poor compliance with outpatient treatment and medication, he was considered to be a candidate for long-acting injectable antipsychotic and after ruling out hypersensitivity to the molecule of Risperdal, Invega Sustenna was initiated and he was able to receive both the loading doses while on the unit with the first dose of 234 mg intramuscular on day 1 and 156 mg intramuscular on day 6 and followed by which, he is scheduled to receive 156 mg of Invega Sustenna every 30 days [facility] and was seen to be doing much better and was calm and cooperative. No agitation or aggression was noted. He was not seen to be danger to self or anyone else and as such, it was decided that he will be discharged home and will continue treatment on an outpatient basis. DISCHARGE MEDICATIONS Invega Sustenna 156 mg intramuscular every 30 days. DISCHARGE CONDITION Stable. Unit #: [id number] #: [id number] Patient: FARRAH SCHERER PROGNOSIS Fair. Dictated by... Vaibhav Bill/katrin TD: 06/11/2017 07:37 JOB #: [id number] DISCHARGE SUMMARY Page 1 of 1 X Lexie Bourgeois MD DISCHARGE SUMMARY
--- NOTE | ~2017-06-01 | PN ---
Unit #: [id number] #: [id number] Patient: FARRAH SCHERER [id number] [facility] [address] [place] [address] [id number] MR#: [id number] NAME: FARRAH SCHERER ROOM: [facility] Age: 21 Sex: M Admission Date: 06/01/2017 : 1995 Attending Physician: Lexie Bourgeois M.D. Admitting Physician: Lexie Bourgeois M.D. Primary Care Physician: Primary Care Physician Katherine DAMIAN NOTES DATE OF SERVICE 06/04/2017 DISCUSSION Mr. Scherer is a 21-year-old white male who was seen today. Chart was reviewed and case was discussed with the staff. He has been anxious, withdrawn, and rather seclusive to himself. Meanwhile, he has not shown any agitation or aggression but has been exhibiting some acute psychosis with blunted affect, paranoid ideation, delusional behavior, and appears to be responding to internal stimuli (1) __. However, he has been taking the medications and tolerating them fairly well and has been started on long-acting injectable antipsychotic. MENTAL STATUS EXAMINATION Young white male who is casually dressed with fair personal hygiene, appears to be in no acute distress or discomfort. He was awake and alert with impaired attention and concentration. His mood is anxious with congruent affect. His speech is slow and tangential. His thought processes were disorganized with some looseness of associations and flight of ideas. His insight and judgment remain significantly impaired. TREATMENT PLAN 1. We will continue him on his current medications and treatment protocol. We will monitor his response to the medications, and we will make further adjustments as needed. 2. We will continue to follow up. Dictated by... Lexie Bourgeois M.D. IAA/bzg TD: 06/04/2017 09:13 JOB #: [id number] Unit #: [id number] #: [id number] Patient: FARRAH SCHERER JIN PROGRESS NOTES Page 1 of 1 X Lexie Bourgeois MD X PROGRESS NOTE
--- NOTE | ~2017-06-01 | PN ---
Unit #: [id number] #: [id number] Patient: FARRAH SCHERER [id number] [facility] [address] [place] [address] [id number] I MR#: [id number] NAME: FARRAH SCHERER ROOM: [facility] Age: 21 Sex: M Admission Date: 06/01/2017 : 1995 Attending Physician: Lexie Bourgeois M.D. Admitting Physician: Lexie Bourgeois M.D. Primary Care Physician: Primary Care Physician Katherine ABDI PROGRESS NOTES DATE 06/03/2017 DISCUSSION Mr. Scherer is a 21-year-old white male who was seen today and chart was reviewed and case was discussed with the staff. He has been anxious, withdrawn though has not shown any agitation, irritability and has been cooperative with treatment recommendations and has been taking medications and tolerating them fairly well with no reported side effects. MENTAL STATUS EXAMINATION Young white male who was casually dressed with fair personal hygiene and appears to be in no acute distress or discomfort. He was awake and alert on interaction with intact orientation. His mood was anxious with congruent affect. His speech is slow and goal-directed. He denies any suicidal or homicidal ideations. His insight and judgement remains slightly impaired. TREATMENT PLAN 1. Will continue on his current medications and treatment protocol. Will monitor his response to the medications and make further adjustments as needed. 2. Will continue to follow up. Dictated by... Vaibhav Bill/jannie TD: 06/03/2017 20:18 JOB #: [id number] Unit #: [id number] #: [id number] Patient: FARRAH SCHERER JIN PROGRESS NOTES Page 1 of 1 X Lexie Bourgeois MD PROGRESS NOTE
--- NOTE | ~2017-06-01 | PN ---
Unit #: [id number] #: [id number] Patient: FARRAH SCHERER [id number] [facility] [address] [place] [address] [id number] MR#: [id number] NAME: FARRAH SCHERER ROOM: [facility] Age: 21 Sex: M Admission Date: 06/01/2017 : 1995 Attending Physician: Lexie Bourgeois M.D. Admitting Physician: Lexie Bourgeois M.D. Primary Care Physician: Primary Care Physician Katherine DAMIAN NOTES DATE June 09, 2017 DISCUSSION Mr. Scherer is a 21-year-old white male, who was seen today and chart was reviewed and the case was discussed with the staff. He has been anxious, withdrawn, and rather seclusive to himself but has been calm and cooperative with treatment recommendations and he has been taking the medications and tolerating them fairly well with no reported side effects. MENTAL STATUS EXAMINATION Young white male, who was casually dressed with fair personal hygiene and appears to be in no acute distress or discomfort. He was awake and alert with impaired attention and concentration. His mood is anxious with a congruent affect. He denies any suicidal or homicidal ideations. His insight and judgment remain slightly impaired. TREATMENT PLAN 1. We will continue him on his current medications and treatment protocol, and will monitor his response to the medications, and make further adjustments as needed. 2. We will continue to followup. Dictated by... Vaibhav Bill/ct TD: 06/09/2017 11:04 JOB #: [id number] Unit #: [id number] #: [id number] Patient: FARRAH SCHERER JIN PROGRESS NOTES Page 1 of 1 X Lexie Bourgeois MD PROGRESS NOTE
--- NOTE | ~2017-06-01 | HP ---
Unit #: [id number] #: [id number] Patient: FARRAH SCHERER [id number] [place] [address] [id number] I MR#: [id number] NAME: FARRAH SCHERER. ROOM: [facility] Age: 21 Sex: M Admission Date: 06/01/2017 : 1995 Attending Physician: Lexie Bourgeois M.D. Admitting Physician: Lexie Bourgeois M.D. Primary Care Physician: Primary Care Physician No HISTORY AND PHYSICAL HISTORY OF PRESENT ILLNESS Farrah is a 21 year old admitted to [address] [place] [address] with psychotic behavior. He is a poor historian so his history is taken from his chart. PAST MEDICAL HISTORY 1. 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 2. History of self-harming. PAST SURGICAL HISTORY Nothing reported. ALLERGIES No known drug allergies. SOCIAL HISTORY Smokes 1 pack per day. Denies alcohol. Admits to a long history of illicit substance abuse to include methamphetamine. FAMILY HISTORY Medically noncontributory. REVIEW OF SYSTEMS He does not answer questions appropriately. There are no reports of nausea, vomiting or diarrhea. He has had no cough or increased temperature. CURRENT MEDICATIONS 1. Invega Sustenna 156 mg IM q. 30 days. 2. Risperdal 1 mg b.i.d. 3. Milk of Magnesia p.r.n. 4. Maalox p.r.n. 5. Tylenol p.r.n. 6. Nicotine patch 14 mg daily. PHYSICAL EXAMINATION GENERAL: Alert, well-nourished, in no apparent distress. VITAL SIGNS: Blood pressure 120/60, heart rate 66, respirations 16, temperature 98.6. WEIGHT: 118. HEIGHT: 5 feet 7 inches. SKIN: Warm and dry without rash or lesion. HEENT: Normocephalic. TMs not viewed. Oral and nasal passages clear. Conjunctivae clear. PERRLA. EOMs intact. Unit #: [id number] #: [id number] Patient: FARRAH SCHERER NECK: Supple without lymphadenopathy or thyromegaly. HEART: Regular rate and rhythm without murmur. LUNGS: Clear. ABDOMEN: Soft, nontender. : Not done. EXTREMITIES: No evidence of cyanosis, clubbing or edema. Moves all without focal deficit. NEUROLOGICAL: Unable to complete extended exam. He does move all extremities without focal deficit. Hand clinical research technician is equal and gait is normal. IMPRESSION Psychiatric admission. RECOMMENDATIONS PSYCHIATRIC: Per psychiatrist. MEDICAL: See no contraindication to participate in facility's activities. MEDICAL PROGNOSIS Good. MEDICAL CONDITION Stable. Dictated by... Ruth Tafoya P.A.-C. for Vaibhav Lindsey/jannie TD: 06/02/2017 22:42 JOB #: [id number] HISTORY AND PHYSICAL Page 1 of 1 X Ruth Tafoya X HISTORY AND PHYSICAL
--- NOTE | ~2017-06-01 | PN ---
Unit #: [id number] #: [id number] Patient: FARRAH SCHERER [id number] [facility] [address] [place] [id number] I MR#: [id number] NAME: FARRAH SCHERER ROOM: [facility] Age: 21 Sex: M Admission Date: 06/01/2017 : 1995 Attending Physician: Lexie Bourgeois M.D. Admitting Physician: Lexie Bourgeois M.D. Primary Care Physician: Primary Care Physician Katherine DAMIAN NOTES DATE June 06, 2017 DISCUSSION Mr. Scherer is a 21-year-old white male, with mood disorder, and psychosis, who was seen today and chart was reviewed and the case was discussed with the staff. He remains anxious, withdrawn, depressed, and rather seclusive to himself. Meanwhile, he has been cooperative with the treatment recommendations and he has been taking the medications and tolerating them fairly well with no reported side effects. MENTAL STATUS EXAMINATION Young white male, who was casually dressed with fair personal hygiene and appears to be in no acute distress or discomfort. He was awake and alert with impaired attention and concentration. His mood is anxious with a congruent affect. He denies any suicidal or homicidal ideations. His thought processes are disorganized with some looseness of associations and paranoid ideations and delusional behavior. His insight and judgment remain significantly impaired. TREATMENT PLAN 1. We will continue him on his current medications and treatment protocol, and will monitor his response to the medications, and make further adjustments as needed. 2. We will continue to followup. Dictated by... Vaibhav Bill/ct TD: 06/07/2017 09:57 JOB #: [id number] Unit #: [id number] #: [id number] Patient: FARRAH SCHERER JIN PROGRESS NOTES Page 1 of 1 X Lexie Bourgeois MD PROGRESS NOTE
--- NOTE | ~2017-06-01 | PN ---
Unit #: [id number] #: [id number] Patient: FARRAH SCHERER [id number] [facility] [address] [place] [address] [id number] MR#: [id number] NAME: FARRAH SCHERER ROOM: [facility] Age: 21 Sex: M Admission Date: 06/01/2017 : 1995 Attending Physician: Lexie Bourgeois M.D. Admitting Physician: Lexie Bourgeois M.D. Primary Care Physician: Primary Care Physician Katherine DAMIAN NOTES DATE OF SERVICE: 06/08/2017 SUBJECTIVE Mr. Scherer is a 21-year-old white male, who was seen today and chart was reviewed and case was discussed with the staff. He has been anxious, withdrawn, and rather seclusive to himself. Meanwhile, he has been cooperative with treatment recommendations and has been taking the medications and tolerating them fairly well with no reported side effects. MENTAL STATUS EXAMINATION Young white male who was casually dressed with fair personal hygiene, appears to be in no acute distress or discomfort. He was awake and alert with impaired attention and concentration. His mood was anxious with a congruent affect. He denies any suicidal or homicidal ideations. His thought processes were disorganized with some looseness of associations, thought blocking, paranoid ideations, and delusional behavior. His insight and judgment remain significantly impaired. TREATMENT PLAN 1. We will continue on his current treatment protocol. We will monitor his response to the medication and make further adjustments as needed. 2. We will continue to follow up. Dictated by... Vaibhav Bill/katrin TD: 06/08/2017 08:05 JOB #: [id number] JIN PROGRESS NOTES Page 1 of 1 X Lexie Bourgeois MD PROGRESS NOTE
== END 2017-06-11 10:35 | DRG 885 ==
LOC: P1S 19:18
DX: F20.0 Paranoid schizophrenia (principal); Z59.0 Homelessness; F17.210 Nicotine dependence, cigarettes, uncomplicated; Z91.5 Personal history of self-harm

== ENCOUNTER 2017-07-27 19:34 | Inpatient (IN) | payer BC, MEDICAID ==
[~2017-07-27] VITALS: Ht 172.7 cm; Wt 54.9 kg
--- NOTE | ~2017-07-27 | PN ---
Unit #: [id number] #: [id number] Patient: FARRAH SCHERER [id number] [facility] [address] [place] [address] [id number] I MR#: [id number] NAME: FARRAH SCHERER ROOM: 13 Age: 21 Sex: M Admission Date: 07/27/2017 : 1995 Attending Physician: Lexie Bourgeois M.D. Admitting Physician: Lexie Bourgeois M.D. Primary Care Physician: Primary Care Physician Katherine DAMIAN NOTES DATE OF SERVICE: 07/31/2017 SUBJECTIVE This is a 21-year-old white male who was seen today and chart was reviewed, and case was discussed with the staff. He remains anxious, withdrawn, depressed and rather seclusive to himself with blunted affect, minimal interaction, and poor eye contact. Meanwhile, he has been taking medications and tolerating them fairly well with no reported side effects. MENTAL STATUS EXAMINATION Young white male, who was casually dressed with fair personal hygiene, appears to be in no acute distress or discomfort. He was awake and alert on interaction with intact orientation. His mood was anxious with congruent affect. He denies any suicidal or homicidal ideations. His insight and judgment remain slightly impaired. TREATMENT PLAN 1. We will continue him on his current medications and treatment protocol. We will monitor his response to medications and make further adjustments as needed. 2. We will continue to follow up. Dictated by... Vaibhav Bill/juliennel TD: 08/03/2017 00:34 JOB #: [id number] JIN DAMIAN NOTES Page 1 of 1 X Lexie Bourgeois MD PROGRESS NOTE
--- NOTE | ~2017-07-27 | PN ---
Unit #: [id number] #: [id number] Patient: FARRAH SCHERER [id number] [facility] [address] [place] [address] [id number] I MR#: [id number] NAME: FARRAH SCHERER. ROOM: 13 Age: 21 Sex: M Admission Date: 07/27/2017 : 1995 Attending Physician: Lexie Bourgeois M.D. Admitting Physician: Lexie Bourgeois M.D. Primary Care Physician: Primary Care Physician Katherine DAMIAN NOTES DATE 08/02/2017 DISCUSSION Mr. Scherer is a 21-year-old white male who was seen today and chart was reviewed and case was discussed with the staff. He has been anxious, withdrawn and rather seclusive to himself. Meanwhile, he has been cooperative with treatment recommendations and has been taking medications and tolerating them fairly well with no reported side effects. MENTAL STATUS EXAMINATION Young white male who was casually dressed with fair personal hygiene and appears to be in no acute distress or discomfort. He was awake and alert on interaction with intact orientation. His mood was anxious with congruent affect. He denies any suicidal or homicidal ideation and also denies any auditory or visual hallucinations. His insight and judgement remains slightly impaired. TREATMENT PLAN 1. Will continue on his current medications and treatment protocol. Will monitor his response to the medications and make further adjustments as needed. 2. Will continue to follow up. Dictated by... Vaibhav Bill/jannie TD: 08/03/2017 20:30 JOB #: [id number] Unit #: [id number] #: [id number] Patient: FARRAH SCHERER JIN PROGRESS NOTES Page 1 of 1 X Lexie Bourgeois MD PROGRESS NOTE
--- NOTE | ~2017-07-27 | HP ---
Unit #: [id number] #: [id number] Patient: FARRAH SCHERER [id number] [place] [address] [id number] I MR#: [id number] NAME: FARRAH SCHERER. ROOM: [facility] Age: 21 Sex: M Admission Date: 07/27/2017 : 1995 Attending Physician: Lexie Bourgeois M.D. Admitting Physician: Lexie Bourgeois M.D. Primary Care Physician: Primary Care Physician No HISTORY AND PHYSICAL HISTORY OF PRESENT ILLNESS Farrah is a 21 year old admitted to [address] [place] [address] with psychotic and self-harming behavior. He has been cutting extensively on both arms. He has had other admissions to this facility. PAST MEDICAL HISTORY 1. History of self-harming. 2. 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 PAST SURGICAL HISTORY Nothing reported. ALLERGIES No known drug allergies. SOCIAL HISTORY Smokes 1 pack per day. Denies alcohol. Admits to a long history of illicit substance abuse to include methamphetamine. FAMILY HISTORY Medically noncontributory. REVIEW OF SYSTEMS CONSTITUTIONAL: No fever or chills. HEENT: Denies any sore throat, ear pain or runny nose. CARDIOVASCULAR: Denies chest pain, irregular heart rhythm or palpitations. CHEST: Denies shortness of breath or cough. No hemoptysis. GASTROINTESTINAL: Denies nausea, vomiting, diarrhea or chronic constipation. ENDOCRINE: Denies history of increased thirst or urination. No recent significant weight loss or gain. GENITOURINARY: Denies dysuria, frequency, or hematuria. SKIN: Denies any rashes. HEMATOLOGIC: Denies history of increased bleeding or bruising. MUSCULOSKELETAL: Denies any hot, swollen joints. No generalized muscle pain. NEUROLOGIC: Denies problems with vision or speech. No frequent, severe headaches. No numbness, tingling or weakness in any extremities. Denies loss of bladder or bowel control. CURRENT MEDICATIONS 1. Invega Sustenna 156 mg IM q. 30 days. 2. Risperdal 1 mg b.i.d. Unit #: [id number] #: [id number] Patient: FARRAH SCHERER 3. Nicotine patch 14 mg daily. 4. Milk of Magnesia p.r.n. 5. Maalox p.r.n. 6. Tylenol p.r.n. 7. Desyrel p.r.n. PHYSICAL EXAMINATION GENERAL: Alert, well-nourished, in no apparent distress. VITAL SIGNS: Blood pressure 126/80, heart rate 80, respirations 16, temperature 98.6. WEIGHT: 121. HEIGHT: 5 feet 8 inches. SKIN: Warm and dry without rash. He has extensive cuts and vargas along both arms. These areas have scabbed over. There is minimal localized redness along some of the areas but no pus or heat is noted. Neurovascular intact. HEENT: Normocephalic. TMs not viewed. Oral and nasal passages clear. Conjunctivae clear. PERRLA. EOMs intact. NECK: Supple without lymphadenopathy or thyromegaly. HEART: Regular rate and rhythm without murmur. LUNGS: Clear. ABDOMEN: Soft, nontender. : Not done. EXTREMITIES: No evidence of cyanosis, clubbing or edema. Moves all without focal deficit. NEUROLOGICAL: Grossly within normal limits. Cranial Nerves: II: Visual flores are intact. III, IV AND : Extraocular movements are intact. Pupils are equal, round and reactive to light. V: Facial sensation is grossly normal. VII: Facial movements and expression are normal. VIII: Auditory acuity grossly intact. IX, X: Uvula is midline. Phonation is normal. XI: Patient shrugs shoulders and turns head normally. XII: Tongue protrudes in the midline. Sensory and Motor Function: Sensory and motor sensation is grossly normal. Motor: moves all extremities well. Coordination: Gait is normal. Deep Tendon Reflexes: Intact. IMPRESSION 1. Psychiatric admission. 2. Extensive self-harming behavior sustained prior to this admission. RECOMMENDATIONS PSYCHIATRIC: Per psychiatrist. MEDICAL: 1. See no contraindication to participate in facility's activities. 2. Keep the areas clean with soap and water. No further Rx. MEDICAL PROGNOSIS Good. MEDICAL CONDITION Stable. Dictated by... Ruth Tafoya P.A.-C. for Unit #: [id number] #: [id number] Patient: FARRAH SCHERER Vaibhav Lindsey/jannie TD: 07/28/2017 17:56 JOB #: [id number] HISTORY AND PHYSICAL Page 1 of 1 X Ruth Tafoya HISTORY AND PHYSICAL
--- NOTE | ~2017-07-27 | PN ---
Unit #: [id number] #: [id number] Patient: FARRAH SCHERER [id number] [facility] [address] [place] [address] [id number] MR#: [id number] NAME: FARRAH SCHERER. ROOM: 13 Age: 21 Sex: M Admission Date: 07/27/2017 : 1995 Attending Physician: Lexie Bourgeois M.D. Admitting Physician: Lexie Bourgeois M.D. Primary Care Physician: Primary Care Physician Katherine DAMIAN NOTES DATE 07/30/2017 DISCUSSION Mr. Scherer is a 21-year-old white male who was seen today and chart was reviewed and case was discussed with the staff. He has been anxious, withdrawn and rather seclusive to himself. Meanwhile, he has been and has been taking medications and tolerating them fairly well with no reported side effects. MENTAL STATUS EXAMINATION Young white male who was casually dressed with fair personal hygiene and appears to be in no acute distress or discomfort. He was awake and alert on interactions with intact orientation. His mood was anxious with congruent affect. His speech is slow and goal-directed. He denies any suicidal or homicidal ideation and also denies any auditory or visual hallucinations. His insight and judgement remains slightly impaired. TREATMENT PLAN 1. Will continue on his current medications and treatment protocol. Will monitor his response to the medications and make further adjustments as needed. 2. Will continue to follow up. Dictated by... Vaibhav Bill/jannie TD: 07/30/2017 20:04 JOB #: [id number] Unit #: [id number] #: [id number] Patient: FARRAH SCHERER JIN PROGRESS NOTES Page 1 of 1 X Lexie Bourgeois MD PROGRESS NOTE
--- NOTE | ~2017-07-27 | A ---
[facility] Nutrition Therapy DATE: 07/28/17 Patient: FARRAH SCHERER Physician: AFAIRF Address: NO PERMANENT ADDRESS Room/Bed: [address], Zip: [place] [address] Admit Date: 07/27/17 Date of : [birth year] Height: 5 8 Weight: [id number] NUTRITIONAL ASSESSMENT: REASON: PT WAS SEEN FOR LOW BMI AND 1 NUTRITION RISK POINT RELATED TO UNINTENTIONAL WEIGHT LOSS. PMH: SELF HARM, SUBSTANCE ABUSE Anthropometrics: PT IS 21 YO MALE. HT 5'8". WT 121LBS. BMI 18.4. 79% IBW. Labs: NO NEW LABS Meds: DESYREL Assessment: PT CAME IN DUE TO SELF HARM, SUBSTANCE ABUSE. PT REPORTS SI. PT REPORTS BEING NON COMPLIANT WITH MEDICATIONS. PT SMOKES 1PPD, USES MARIJUANA OCCASIONALLY, USES METH WEEKLY. PT IS HOMELESS AND UNEMPLOYED. PT HAS 3-4" CUTS ON BILATERAL ARMS, PT REPORTS USING KNIVES AND RAZORBLADES IN THE PAST TO INFLICT THESE WOUNDS. PT DENIES ANY GI SYMPTOMS. PT HAS GAINED 3LBS X 3MO AND LOST 7LBS X 4MO. PO INTAKE DATA NOT AVAILABLE AT THIS TIME. PT IS ON REGULAR DIET WITH EXTRA ENTREES. PSYCH MEDS MAY CAUSE WEIGHT AND APPETITE FLUXUATIONS. Dx: UNINTENTIONAL WEIGHT LOSS R/T CURRENT CONDITION AEB RECENT WEIGHT LOSS OF 7LBS X 4MO, HOMELESSNESS. Intervention: REGULAR DIET WITH EXTRA ENTREES, MEDS PER MD, PSYCH Monitoring, Evaluation and Goals: 1. PROMOTE WEIGHT GAIN TOWARDS HEALTHY BMI 2. ADEQUATE INTAKE OF >50% OF MEALS AND SNACKS MONITORING: WEEKLY WEIGHTS, PO/FLUID INTAKE Recommendations: 1. CONTINUE REGULAR DIET WITH EXTRA ENTREES. OFFER SNACKS BETWEEN MEALS 2. ENCOURAGE PO AND FLUID INTAKES. 3. WILL CONTINUE TO MONITOR PO INTAKES AND WEIGHT. RD WILL FOLLOW UP PER PROTOCOL AND PRN PER MILD NUTRITION RISK. Respectfully, [facility] Nutrition Therapy DATE: 07/28/17 Patient: FARRAH SCHERER Physician: HENRRYF Address: NO PERMANENT ADDRESS Room/Bed: [address], Zip: [place] [address] Admit Date: 07/27/17 Date of : [birth year] Height: 5 8 Weight: [id number] BERTHA ELLIS, MS, RD, LD [facility] cc: client file
--- NOTE | ~2017-07-27 | DS ---
Unit #: [id number] #: [id number] Patient: FARRAH SCHERER [id number] [facility] [address] [place] [address] [id number] I MR#: [id number] NAME: FARRAH SCHERER. ROOM: [facility] Age: 21 Sex: M Admission Date: 07/27/2017 : 1995 Discharge Date: 08/03/2017 Attending Physician: Lexie Bourgeois M.D. Primary Care Physician: Primary Care Physician No DISCHARGE SUMMARY IDENTIFICATION DATA Mr. Scherer is a 21-year-old single white male with history of mood disorder and psychosis who was brought to the hospital by his family. DISCHARGE DIAGNOSES PSYCHIATRIC: Chronic paranoid schizophrenia. MEDICAL: None. STRESSORS: Moderate psychosocial stressors. HISTORY OF PRESENT ILLNESS Same as in initial psychiatric evaluation. PAST PSYCHIATRIC HISTORY Same as in initial psychiatric evaluation. PAST MEDICAL HISTORY Same as in initial psychiatric evaluation. HOSPITAL COURSE The patient was [facility] and was oriented to the hospital environment. Routine p.r.n. medications were initiated, and he was started back on his home medications, and medications were adjusted, and he was closely monitored. He was initially seen to be very withdrawn, anxious, and rather seclusive to himself. However, he was able to show a decent therapeutic response to the medication with improvement in depression, anger, agitation, and psychosis. As such it was decided that he will be discharged home. We will continue treatment on outpatient basis. DISCHARGE MEDICATIONS Risperdal 1 mg in the morning and 2 mg at bedtime for psychosis. CONDITION AT DISCHARGE Stable. PROGNOSIS Fair. Dictated by... Vaibhav Bill/bzg Unit #: [id number] #: [id number] Patient: FARRAH SCHERER TD: 08/05/2017 11:39 JOB #: [id number] DISCHARGE SUMMARY Page 1 of 1 X Lexie Bourgeois MD DISCHARGE SUMMARY
--- NOTE | ~2017-07-27 | PA ---
Unit #: [id number] #: [id number] Patient: FARRAH SCHERER [id number] [facility] [address] [place] [address] [id number] I MR#: [id number] NAME: FARRAH SCHERER ROOM: P106 Age: 21 Sex: M Admission Date: 07/27/2017 : 1995 Date of Assessment: 07/28/2017 Attending Physician: Lexie Bourgeois M.D. Admitting Physician: Lexie Bourgeios M.D. Primary Care Physician: Primary Care Physician No PSYCHIATRIC ASSESSMENT DATE OF SERVICE 07/28/2017. IDENTIFYING DATA Mr. Scherer is a 21-year-old single white male, who is a resident of [place], [place], and is known to me from previous encounter and was self-referred to the hospital on a voluntary basis. CHIEF COMPLAINT "I was feeling hopeless, psychotic, and homicidal even." HISTORY OF PRESENT ILLNESS Mr. Scherer is a 21-year-old white male with history of mood disorder, who was brought to the hospital by his mother. Upon presentation, he stated that he was feeling hopeless and psychotic and homicidal "my cutting led me here today. I went to the [employer] I used to work at and I had been cutting, they called the police on me for trespassing and then they transported me to [facility] and I've been thinking about killing myself. I don't want to hurt anyone specifically, but I have been just getting so mad." The patient reports that he lost his job at [employer] and he is currently homeless and has been having increasing depression, though he states that his mother is supportive and that he has some close friends he would talk to if he needs some help, but however, he does endorse increasing depression, anxiety, poor energy level, psychomotor retardation, feelings of hopelessness and helplessness, suicidal and vague homicidal ideation, and as such, recommendation for inpatient level of care for safety and stabilization was made and the patient was transferred to us. SUBSTANCE ABUSE HISTORY The patient reports history of alcohol, cannabis, amphetamines, inhalants, and benzodiazepine abuse, but reports that he has not used anything in the last few weeks. PAST PSYCHIATRIC HISTORY The patient has had a history of psychiatric treatment at [facility], and review of the medical records indicate that he has been diagnosed and treated for schizoaffective, bipolar type and is supposed to be on Invega Sustenna long-acting injectable antipsychotic, but that he has not been compliant with treatment recommendations and as such, has been decompensating. PAST MEDICAL HISTORY Unit #: [id number] #: [id number] Patient: FARRAH SCHERER The patient's medical history is insignificant. ALLERGIES No known medication allergies. PERSONAL AND SOCIAL HISTORY A 21-year-old white male, who reports that he is single, unemployed, and essentially homeless and has poor social support system. MENTAL STATUS EXAMINATION Young white male, who was casually dressed with fair personal hygiene, appears to be in no acute distress or discomfort. He was awake and alert on interaction with intact orientation to time, place, and person. His mood was anxious and depressed with a congruent affect. His speech was slow and restricted in content. His thought processes were disorganized with some looseness of associations and suicidal ideations and vague homicidal ideations. His insight and judgment remain significantly impaired. DIAGNOSTIC IMPRESSION Psychiatric: Schizoaffective disorder, bipolar type, most recent episode depressed, recurrent, moderate, with psychosis. Medical: None. Stressors: Moderate psychosocial stressors. TREATMENT PLAN 1. The patient has presented with a history of mood disorder and psychosis and has been decompensating and will need inpatient hospitalization for safety and stabilization. We will start him back on his home medications and we will adjust the medications and monitor response. 2. Supportive therapy was provided to the patient. 3. Safe, structured, and nourishing environment will be provided. ESTIMATED LENGTH OF STAY 5 to 7 days. ABILITY TO HELP SELF Limited. WILLINGNESS TO HELP SELF The patient appears to be willing to help self. STRENGTHS 1. Communicative. 2. Cooperative. PROBLEMS 1. Chronic dysphoric symptoms. 2. Poor social support system. DISCHARGE CRITERIA This will be contingent upon the patient's ability to show resolution of his depression and psychosis and his ability to stay safe to himself, particularly after discharge from the hospital. Dictated by... Unit #: [id number] #: [id number] Patient: FARRAH SCHERER Vaibhav Bill/katrin TD: 07/28/2017 20:44 JOB #: [id number] PSYCHIATRIC ASSESSMENT Page 1 of 1 X Lexie Bourgeois MD PSYCHIATRIC ASSESSMENT
--- NOTE | ~2017-07-27 | PN ---
Unit #: [id number] #: [id number] Patient: FARRAH SCHERER [id number] [facility] [address] [place] [address] [id number] MR#: [id number] NAME: FARRAH SCHERER. ROOM: [facility] Age: 21 Sex: M Admission Date: 07/27/2017 : 1995 Attending Physician: Lexie Bourgeois M.D. Admitting Physician: Lexie Bourgeois M.D. Primary Care Physician: Primary Care Physician Katherine DAMIAN NOTES DATE OF SERVICE 07/29/2017 DISCUSSION Mr. Scherer is a 21-year-old white male who was seen today. Chart was reviewed and case was discussed with the staff. He has been anxious, withdrawn, and rather seclusive to himself. Meanwhile, he has been cooperative with the treatment recommendations and has been taking the medications and tolerating them fairly well with no reported side effects. MENTAL STATUS EXAMINATION Young white male who is casually dressed with fair personal hygiene, appears to be in no acute distress or discomfort. The patient was awake and alert with intact orientation. His mood is anxious with congruent affect. Speech is slow and restricted in content. He reports having suicidal ideation but denies any homicidal ideations. His insight and judgment remain significantly impaired. TREATMENT PLAN 1. We will continue him on his current medications and treatment protocol. We will monitor his response and make further adjustments as needed. 2. We will continue to follow up. Dictated by... Lexie Bourgeois M.D. IAA/bzg TD: 07/29/2017 12:41 JOB #: [id number] Unit #: [id number] #: [id number] Patient: FARRAH SCHERER JIN PROGRESS NOTES Page 1 of 1 X Lexie Bourgeois MD PROGRESS NOTE
--- NOTE | ~2017-07-27 | PN ---
Unit #: [id number] #: [id number] Patient: FARRAH SCHERER [id number] [facility] [address] [place] [address] [id number] I MR#: [id number] NAME: FARRAH SCHERER. ROOM: 13 Age: 21 Sex: M Admission Date: 07/27/2017 : 1995 Attending Physician: Lexie Bourgeois M.D. Admitting Physician: Lexie Bourgeois M.D. Primary Care Physician: Primary Care Physician Katherine DAMIAN NOTES DATE August 01, 2017 DISCUSSION Mr. Scherer is a 21-year-old white male, who was seen today and chart was reviewed and the case was discussed with the staff. He has been anxious, withdrawn, but has not shown any agitation, irritability, and has been cooperative with the treatment recommendations, and he has been taking the medications and tolerating them fairly well. MENTAL STATUS EXAMINATION Young white male, who was casually dressed with fair personal hygiene and appears to be in no acute distress or discomfort. He was awake and alert on interaction with intact orientation. His mood is anxious with a congruent affect. He denies any suicidal or homicidal ideations. His insight and judgment remain slightly impaired. TREATMENT PLAN 1. We will continue him on his current medications and treatment protocol, and will monitor his response to the medications, and make further adjustments as needed. 2. We will continue to followup. Dictated by... Vaibhav Bill/ct TD: 08/02/2017 11:40 JOB #: [id number] Unit #: [id number] #: [id number] Patient: FARRAH SCHERER JIN PROGRESS NOTES Page 1 of 1 X Lexie Bourgeois MD PROGRESS NOTE
--- NOTE | ~2017-07-27 | CO ---
Unit #: [id number] #: [id number] Patient: FARRAH SCHERER [id number] [facility] [address] [place] [address] [id number] I MR#: [id number] NAME: FARRAH SCHERER ROOM: [facility] Age: 21 Sex: M Admission Date: 07/27/2017 : 1995 Attending Physician: Lexie Bourgeois M.D. Primary Care Physician: Primary Care Physician No Consultation Date: 07/28/2017 CONSULTATION REPORT SUBJECTIVE Farrah is a 21-year-old who sustained significant self-inflicted lacerations and vargas to both of his arms prior to admission. These areas were examined in detail under his admission H and P. Please see H and P dated 07/28/2017. Dictated by... Ruth Tafoya P.A.-C. for Vaibhav Lindsey/katrin TD: 07/28/2017 19:05 JOB #: [id number] CONSULTATION REPORT Page 1 of 1 X Ruth Tafoya CONSULTATION REPORT
[2017-07-30 09:45] LABS: ALBUMIN SERUM 3.7 g/dL (3.5-5.0); BASOPHIL% 0.7 % (0-2.5); BILIRUBIN,TOTAL 0.7 mg/dL (0.2-2.0); CALCIUM SERUM 9.1 mg/dL (8.4-10.2); CREATININE SERUM 0.8 mg/dL (0.6-1.4); EOSINOPHIL# 0.2 X10e3 (0-0.7); EOSINOPHIL% 3.9 % (0.0-7.0); GLOM FILT RATE Estimated 127.7 mL/min (>60); HEMATOCRIT 39.8 % (38.0-50.0); HEMOGLOBIN 13.7 gm/dL (13.0-16.0); LYMPHOCYTE# 1.3 X10e3 (1.0-3.5); LYMPHOCYTE% 23.3 % (17.0-45.0); MEAN CELL VOLUME 87.2 FL (83-96); MEAN CORPUSCULAR HEMOGLOBIN 30.1 PG (28-34); MEAN CORPUSCULAR HGB CONC 34.5 g/dL (30-36); MONOCYTE# 0.5 X10e3 (0-1.0); MONOCYTE% 9.4 % (3.0-12.0); NEUTROPHIL# 3.6 X10e3 (1.5-7.1); NEUTROPHIL% 62.7 % (40-75); PLATELET COUNT 137 X10e3 (140-420); POTASSIUM 4.9 mmol/L (3.5-5.1); PROTEIN TOTAL SERUM 6.3 g/dL (6.0-8.3); RED BLOOD COUNT 4.56 X10e (3.90-5.60); WHITE BLOOD COUNT 5.8 X10e3 (4.0-10.5)
[2017-07-30 10:01] LABS: DIFF IND NO
== END 2017-08-03 14:38 | disposition home or self-care (01) | DRG 885 ==
LOC: P1S 22:08
PROVIDERS: Psychiatry & Neurology Psychiatry
DX: F20.0 Paranoid schizophrenia (principal); F17.210 Nicotine dependence, cigarettes, uncomplicated
CPT/HCPCS: 80053; 85025